=== PATIENT | male | born 2005 | race Caucasian/White ===

== ENCOUNTER 2025-02-18 11:31 | Day surgery (SDC) | payer BC ==
[2025-02-13 13:42] VITALS: BMI 19.8
[~2025-02-18 11:31] MED LIST: HYDROmorphone 0.5 MG/0.5 ML SYRINGE IVP PRN; metroNIDAZOLE-NS PMX 500 MG in SALINE 1 100ML.BAG IVPB PRN
[2025-02-18] MEDS: IV FLUID CONTINUATION 1,000 ML IV ONE (12:29)
[2025-02-18] MEDS: ONDANSETRON 4 MG/2 ML VIAL IVP ONE (12:42)
[2025-02-18] MEDS: DEXAMETHASONE SOD PHOSPHATE 4 MG/ML 1 ML VIAL IV ONE (12:42)
[2025-02-18] MEDS: LACTATED RINGERS 1,000 ML IV SCH (12:43)
[2025-02-18] MEDS: LIDOCAINE 2%-EPI 1:100,000 20 ML VIAL SUBMUCOSAL ONE ×3 (13:04→14:10)
[2025-02-18] MEDS ORDERED: ACETAMINOPHEN IV (For NPO) 1,000 MG/100 ML VIAL ONE (13:53)
[2025-02-18] MEDS ORDERED: SUCCINYLCHOLINE CHLORIDE 200 MG/10 ML VIAL IV ONE (13:53)
[2025-02-18] MEDS ORDERED: LIDOCAINE 1% INJ 10MG/ML (20 ML MDV) ONE (13:53)
[2025-02-18] MEDS ORDERED: DEXMEDETOMIDINE/0.9% NACL(PMX) 400 MCG/100 ML IV ONE (13:53)
[2025-02-18] MEDS ORDERED: fentaNYL (PF) 50 MCG/ML 2 ML AMP ONE (13:53)
[2025-02-18] MEDS ORDERED: PROPOFOL 10 MG/ML 20 ML VIAL IV ONE (13:53)
[2025-02-18] MEDS: ceFAZolin 2 GM in DEXTROSE 5% IN WATER 50 ML IVPB PRN (13:57)
[2025-02-18 15:18] VITALS: TEMP 98.5
--- NOTE | 2025-02-18 15:29 | P.OP ---
Date of Procedure: 02/18/25 Preoperative Diagnosis: Fragile X syndrome Pericoronitis and pain of wisdom teeth numbers1,16,17 and 32 Postoperative Diagnosis: Same Procedure(s) Performed: 1 D7240 16 D7230 17 D7230 32 D7240 Implants: None Anesthesia: MAICOL Surgeon: Con[employer] Attendant #1: Emilia Boone Estimated Blood Loss (ml): 2 IV fluids (ml): 300 Urine output (ml): 0 Pathology: none sent Condition: stable Disposition: PACU Indications for Procedure: Patient presents with a history of pain and swelling in his lower right lower left mandible. This had been going on for some time and he was referred to our office for evaluation. The physical exam was not possible due to a strong gag reflex and the patient's Fragile X syndrome. Decision to take the patient to the operating room was made and the patient and the parents were seen in our clinic. Consent was reviewed with the father and mother present including but not limited to broken root tips involvement of the sinus injury to the nerve in the lower or upper jaw. Also bleeding pain infection and swelling. Need for additional procedures. Patient was then scheduled in the hospital setting Operative Findings: None Description of Procedure: Patient mom father seen in the preoperative holding area again reviewed consent not limited to bleeding pain infection and swelling. Discussed with the mother and father my concerns with his strong gag reflex and how postoperative bleeding will be challenging. Recommended head elevation and cool sips of water. As possible strategies Patient was taken to the operating room intubated orally per the anesthesia record without incident. He was then prepped and draped in usual fashion for clean contaminated oral maxillofacial surgery. Bite-block and throat pack were placed. 8 cc of 2% lidocaine with epinephrine was administered. Full-thickness buccal flap was approached on tooth #17 tooth crown was exposed and bone removed Using a George bur on the handpiece. Socket copiously irrigated no tooth fragments remained primary closure with 4-0 plain gut suture. Tooth #16 was then approached similar manner luxated and delivered after bone removal. Gelfoam was used to help achieve hemostasis. Throat pack bite-block removed anesthesia moved to the oral ray over to the left side and the throat pack and bite block were replaced allowing approach to the right side. Full-thickness buccal flap with approaching tooth #32. the tooth was sectioned using a fissure bur on all handpiece. Luxated and delivered without difficulty. Copious irrigation Gelfoam and primary closure. Tooth #1 was then approached full- thickness buccal flap. Tooth removed combination of elevator and forcep, Gelfoam primary closure with 4-0 plain gut in an effort to achieve hemostasis. Gauze was then packed in the mouth and watched for period of time in an effort to make sure that no bleeding was happening. Patient was extubated taken to the postoperative care unit where he is comfortable and stable. Gauze was still in place after 30 minutes. Postoperative care discussed with mom and dad including but limited to strategies for hemostasis as well as discussion of liquid pain medicines. Patient's 2 fill the prescription for liquid Tylenol liquid Motrin and liquid amoxicillin. Plan - Discharge Summary Discharge Rx Participant: No New Discharge Prescriptions: No Action No Known Home Medications Discharge Medication List No Known Home Medications 02/13/25 [History]
[2025-02-18 16:12] VITALS: BP 132/82; PULSE 99; RESP 18
== END 2025-02-18 16:27 | disposition home or self-care (01) ==
LOC: OR 11:31
PROVIDERS: ATTEND Dentist Oral and Maxillofacial Surgery
DX: K05.30 Chronic periodontitis, unspecified (principal); Q99.2 Fragile X chromosome
CPT/HCPCS: 41899; J0330; J1100; J0690; J2405; J2003; J3010; J0131; J2704